=== PATIENT | male | born 1955 | race Caucasian/White ===

== ENCOUNTER → 2016-11-18 | Outpatient (CLI) | payer MEDICAID ==
[~2016-11-18] MED LIST: BACTRIM DS 8001 TAB PO; BENAZEPRIL HCT1 TAB PO; CALAN SR180 MG PO; COUMADIN 7.5MG7.5 MG PO; GABAPENTIN300 M1 PO; INDOMETHACIN50 MG PO; LIPITOR40 MG PO; LISINOPRIL HCTZ1 TAB PO; LORTAB 5/3251 TAB PO; LORTAB 5/500 501 TAB PO; METFORMIN1000 MG PO; MONTELUKAST SOD10 MG PO; PERCOCET 5/3251 EACH PO; SIMVASTATIN40 MG PO; SINGULAIR10 MG PO; TYLENOL W/CODEI1 TA2 PO; VERAPAMIL SR 1180 MG PO; ZITHROMAX 250M250 MG PO
--- NOTE | 2016-11-18 14:09 | RADIOLOGY REPORT PS360 ---
HIP RT 2-3V W/PELVIS IF PERFOR HISTORY: RT HIP PAIN ORDERING PHYSICIAN: SHAY LUND MD PATIENT AGE: 61 years COMPARISON: 09/12/2015 FINDINGS: Severe osteoarthritic changes are present involving the right hip with loss of the joint space superiorly and osteosclerosis with minimal flattening of the femoral head superiorly. Prominent femoral head osteophytes are present. There is mild widening of the neck of the femur similar when compared to the previous exam. No acute fracture or dislocation is evident. There is sclerosis of the iliac aspect of the SI joint with spurring of the SI joint and vascular calcifications are present. IMPRESSION: 1. Severe osteoarthritic changes of the right hip with dysplastic changes of the right femoral head. These findings are not significantly changed compared to the previous exam. 2. 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
== END ==
LOC: RAD 10:16
DX: M25.551 Pain in right hip (principal); R10.2 Pelvic and perineal pain

== ENCOUNTER → 2016-12-03 | Outpatient (CLI) | payer MEDICAID ==
[~2016-12-03] MED LIST changes: +KEFLEX 500MG.500 MG PO
--- NOTE | 2016-12-03 15:12 | RADIOLOGY REPORT PS360 ---
History and Indications: Preop evaluation, history of coronary disease, previous [place], hypertension, diabetes, hyperlipidemia. Procedure: Patient received 0.4 mg of Lexiscan, resting heart rate was 77 bpm resting blood pressure 125/80, with Lexiscan maximum heart rate achieved was 80 bpm which is less than 85% of the maximum predicted heart rate and a blood pressure was 125/89. With Lexiscan patient denied any complained of chest pain or shortness of breath. Electrocardiogram: Resting electrocardiogram showed sinus rhythm possible inferior infarct age indeterminate, with Lexiscan there is less than 1.[address] segment depression noted from the baseline EKG. The EKG portion of the Lexiscan is nondiagnostic. Cardiac stress and resting SPECT images: Cardiac stress and the suspect images were obtained using technetium 99 Myoview 10.3 mCi at rest, 30.0 mCi at stress, gated SPECT further analysis of segmental wall motion and calculation of the ejection fraction also done. Cardiac stress and the suspect images show a fixed defect involving the inferior wall consistent with area of prior myocardial scarring, without significant patricia-infarct ischemia. Computer derived ejection fraction with moderate inferior wall hypokinesis. Right ventricle is normal size and contractility. Conclusion: 1. The EKG portion of the Lexiscan is nondiagnostic. 2. Scintigraphic evidence of prior inferior wall myocardial scarring without significant patricia-infarct ischemia. 3. Computer derived ejection fraction is 50% segmental wall motion abnormality described above, right ventricle is normal size and contractility. 4. Abnormal Lexiscan Myoview study.
--- NOTE | 2016-12-03 15:21 | RADIOLOGY REPORT PS360 ---
PROCEDURE: 2-D M-mode and color Doppler study INDICATIONS FOR THE TEST: Chest pain COPD Heart Murmur Tobacco Smoking Palpitations Fatigue Syncope Edema HypertensionXDiabetes Mellitus Rheumatic Fever SOBXDOEXObesityXHyperlipidemiaX Family History HD Additional History CAD PATIENT INFORMATION HEIGHT: 72 WEIGHT:250 GENDER: Male B/P:125/80 2-D/M-MODE INTERPRETATION: 2-D MEASUREMENTS OBSERVED VALUES IN CMS Right Ventricular Dimension (RVDd) 3.2 Interventricular Septum (Thickness)(IVsd) .9 Left Ventricular Internal Dimensions(LVIDd) 5.3 Left Ventricular Posterior Wall (Thickness)(LVPWd) 1.1 Aortic Root 3.2 Aortic Cusp Separation Left Atrial Dimensions (LAD) 4.0 2D 1. The left atrium is mildly enlarged, left ventricle is normal size, there is mild concentric left ventricular hypertrophy present, visually estimated ejection fraction approximately 50%, there is mild hypokinesis involving the basal septum and inferobasal and posterobasal wall. 2. The right atrium is normal size, the right ventricle is mildly enlarged with normal contractility. 3. The aortic valve is minimally thickened and calcified, there is no aortic stenosis. 4. The mitral valve has mild mitral calcification there is no mitral stenosis. 5. The tricuspid valve is structurally normal. 6. The pulmonic valve is not well visualized. 7. No significant pericardial effusion noted. DOPPLER INTERROGATION: Doppler interrogation of the aortic mitral and tricuspid valvular presence of trace mitral and tricuspid regurgitation, tricuspid regurgitant jet velocity is insufficient for calculation of the right ventricular systolic pressure, grade 1 diastolic dysfunction seen without Doppler evidence of raised left atrial pressure. CONCLUSION: 1. Mildly enlarged left atrium, normal left ventricular size, mild concentric left ventricular hypertrophy, visually estimated ejection fraction of 50% with segmental wall motion abnormalities described above. Grade 1 diastolic dysfunction seen without Doppler evidence of raised left atrial pressure. 2. Trace mitral and tricuspid regurgitation. 3. No significant pericardial effusion noted.
== END ==
LOC: RT 11:47 → RAD 11:47
DX: M16.11 Unilateral primary osteoarthritis, right hip (principal); Z96.641 Presence of right artificial hip joint; Z01.810 Encounter for preprocedural cardiovascular examination; Z01.811 Encounter for preprocedural respiratory examination; Z01.812 Encounter for preprocedural laboratory examination
CPT/HCPCS: A9502; J2785

== ENCOUNTER → 2016-12-07 | Outpatient (CLI) | payer MEDICAID ==
--- NOTE | 2016-12-07 15:02 | RADIOLOGY REPORT PS360 ---
CHEST(2 VIEWS-NOT PORTABLE) HISTORY: Hypertension HTN ORDERING PHYSICIAN: SHAY LUND MD PATIENT AGE: 61 years COMPARISON: 03/09/2016 FINDINGS: The cardiomediastinal silhouette and pulmonary vascularity are within normal limits. Increased density is present in the right lung base medially. This is of questioned clinical significance and could be seen with right middle lobe collapse however, that appearance is not suggested on the lateral view. This millimeters be related to pericardial fat pad. The remaining lungs are clear. No acute bony anomalies. There is DISH of the thoracic spine. IMPRESSION: 1. No definite acute finding. 2. Probable right-sided pericardial fat pad. 3. DISH thoracic spine
== END ==
LOC: RAD 14:03
DX: M16.11 Unilateral primary osteoarthritis, right hip (principal); Z01.810 Encounter for preprocedural cardiovascular examination; Z01.811 Encounter for preprocedural respiratory examination; Z01.812 Encounter for preprocedural laboratory examination